=== PATIENT | female | born 1980 ===

== ENCOUNTER 2020-04-03 18:03 | Inpatient (IN) | payer MEDICAID ==
[~2020-04-03] VITALS: Ht 170.2 cm; Wt 63.6 kg
--- NOTE | 2020-04-03 18:20 | NUR ---
PT TO ROOM 2314. ACCOMPANIED BY EMS. PIVS TO KOFI ACS. ON THE VENT. SETTINGS PER RT. DICKENS PLACED. PROPOFOL INITIATED. PT IN KOFI SOFT WRIST RESTRAINTS. ON COVID/DROPLET PRECAUTIONS.
[2020-04-03 19:00] VITALS: BP 159/114
--- NOTE | 2020-04-03 19:00 | NUR ---
HEAD TO TOE ASSESSMENT COMPLETED. [facility] AT BEDSIDE. ORDERS RECIEVED TO ADMINISTER5 MG METOPROLOL FOR INCREASED HR. ADMISSION ORDERS RECIEVED. PT RESTLESS IN BED. TITRATING PROPOFOL NEEDED FOR SEDATION.
[2020-04-03] MEDS ORDERED: DILT-XR240 MG PO (19:23)
[2020-04-03] MEDS ORDERED: LISINOPRIL10 MG PO (19:23)
[2020-04-03] MEDS ORDERED: FUROSEMIDE20 MG PO (19:24)
[2020-04-03] MEDS ORDERED: TOPROL XL100 MG PO (19:24)
[2020-04-03] MEDS ORDERED: TAPAZOLE 10 MG10 MG PO (19:25)
[2020-04-03 20:00] VITALS: BP 149/105
--- NOTE | 2020-04-03 20:00 | NUR ---
RT AT BEDSIDE ADVANCING ETT. PT AWAKE ALERT/ RESTLESS. CALLED DR COLBY FOR UPDATE. ORDERS RECIEVED TO ADMINISTER FENTANYL AND PROPOFOL FOR SEDATION.
[2020-04-03 20:23] LABS: BASOPHILS 0.1 % (0-2); EOSINOPHILS 0.1 % (0-7); HEMATOCRIT 37.9 % (36.0-48.0); HEMOGLOBIN 11.6 g/dL (12-16); IMMATURE GRANULOCYTES 0.3 % (0-5); LYMPHOCYTES 8.1 % (15-50); MCH 26.8 pg (26.0-34.0); MCHC 30.6 g/dL (31.0-37.0); MCV 87.5 fL (80.0-100.0); MEAN PLATELET VOLUME 11.4 fL (7.4-10.4); MONOCYTES 4.7 % (2-11); NEUTROPHILS 86.7 % (40-80); PLATELET COUNT 321 10x3/uL (130-400); RBC 4.33 10x6/uL (4.00-5.40); RDW 15.7 % (11.5-14.5); WBC 15.6 10x3/uL (4.8-10.8)
[2020-04-03 20:29] LABS: CALC OSMOLALITY 296 mosm/kg (275-300); CARBON DIOXIDE 24.1 mmol/L (21.0-32.0); CHLORIDE - SERUM 113 mmol/L (98-107); CREATININE - SERUM 0.5 mg/dL (0.6-1.3); GLUCOSE 90 mg/dL (74-106); POTASSIUM - SERUM 4.7 mmol/L (3.5-5.1); SODIUM 149 mmol/L (136-145); UREA NITROGEN 14 mg/dL (7-18); eGFR NON AFRICAN AMERICAN > 90 mL/min (90-120)
[2020-04-03 20:31] LABS: APTT 31.6 SECONDS (22.8-39.4); INR 1.17 (0.85-1.17); PROTIME 14.8 SECONDS (11.6-15.0)
[2020-04-03 20:39] LABS: D-DIMER-QUANTITATIVE 3.31 ug/mLFEU (0.20-0.54)
[2020-04-03 20:48] LABS: ALBUMIN 2.8 g/dL (3.4-5.0); ALKALINE PHOSPHATASE 243 U/L (30-120); ALT (SGPT) 46 U/L (10-68); BILIRUBIN - TOTAL 0.46 mg/dL (0.2-1.3); FERRITIN 133 ng/mL (3-244); MAGNESIUM - SERUM 1.8 mg/dL (1.8-2.4); PHOSPHOROUS 8.5 mg/dL (2.5-4.9); PRO BNP 14687 pg/mL (0-125); PROTEIN - SERUM 6.2 g/dL (6.4-8.2)
[2020-04-03 20:56] LABS: T4 THYROXIN - FREE 10.48 ng/dL (0.76-1.46)
[2020-04-03 21:00] VITALS: BP 95/57
--- NOTE | 2020-04-03 21:00 | NUR ---
PT CONTINUES TO BE RESTLESS AND AGITATED ON VENT. TITRATING SEDATION NEEDED TO DECREASED AGITATION.
[2020-04-03 21:51] LABS: ERYTHROCYTE SEDIMENTATION RATE 6 mm/hr (0-20)
[2020-04-03 22:00] VITALS: BP 111/70
--- NOTE | 2020-04-03 22:00 | NUR ---
[facility] AT BEDSIDE. ORDERS RECIEVED TO HAVE RT ADVANCE ETT 2 CM AND THEN OBTAIN CXR FOR PLACEMENT AFTER CT SOFT TISSUE NECK COMPLETED.
[2020-04-03 23:00] VITALS: BP 108/59
--- NOTE | 2020-04-03 23:00 | NUR ---
REASSESSMENT COMPLETED. PT MORE RELAXED BUT STILL WAKES UP AGITATED AND RESTLESS WITH THE SLIGHTEST NOISE. CXR COMLETETED.
--- NOTE | 2020-04-03 23:30 | NUR ---
CALLED [facility] WITH RESULTS OF CXR. ORDERS RECIEVED TO HAVE RT ADVANCE ET TUBE AND THEN REPEAT CXR. RT ADVANCED ETT TO 25 AT THE LIP. CALLED DAVID FOR PLACEMENT.
[2020-04-04] VITALS (25 sets, daily range): BP systolic 99–150; BP diastolic 48–86; Ht 170.2 cm; Wt 63.6 kg
--- NOTE | 2020-04-04 01:45 | NUR ---
CALLED [facility] FOR CXR RESULTS. ORDERS RECIEVED TO KEEP PT SEDATED TO PREVENT THE ETT FROKM BEING DISLOGED. WILL CONTINUE TO MONITOR. VSS
--- NOTE | 2020-04-04 03:00 | NUR ---
REASSESSMENT COMPLETED. PT RELAXED AND CALM. VSS. WILL CONTINUE TO MONITOR.
[2020-04-04 04:17] LABS: BASOPHILS 0.1 % (0-2); EOSINOPHILS 0 % (0-7); HEMATOCRIT 32.9 % (36.0-48.0); HEMOGLOBIN 10.4 g/dL (12-16); IMMATURE GRANULOCYTES 0.2 % (0-5); LYMPHOCYTES 14.9 % (15-50); MCH 27.2 pg (26.0-34.0); MCHC 31.6 g/dL (31.0-37.0); MCV 86.1 fL (80.0-100.0); MEAN PLATELET VOLUME 10.4 fL (7.4-10.4); MONOCYTES 3.5 % (2-11); NEUTROPHILS 81.3 % (40-80); RBC 3.82 10x6/uL (4.00-5.40); RDW 15.5 % (11.5-14.5); WBC 19.3 10x3/uL (4.8-10.8)
[2020-04-04 04:21] LABS: PLATELET COUNT 203 10x3/uL (130-400)
[2020-04-04 04:37] LABS: ALBUMIN 2.2 g/dL (3.4-5.0); ALKALINE PHOSPHATASE 173 U/L (30-120); BILIRUBIN - TOTAL 0.54 mg/dL (0.2-1.3); CALC OSMOLALITY 297 mosm/kg (275-300); CALCIUM 7.7 mg/dL (8.5-10.1); CARBON DIOXIDE 28.4 mmol/L (21.0-32.0); CHLORIDE - SERUM 114 mmol/L (98-107); CREATININE - SERUM 0.4 mg/dL (0.6-1.3); GLUCOSE 86 mg/dL (74-106); MAGNESIUM - SERUM 1.6 mg/dL (1.8-2.4); PROTEIN - SERUM 5.4 g/dL (6.4-8.2); SODIUM 150 mmol/L (136-145); UREA NITROGEN 15 mg/dL (7-18); eGFR NON AFRICAN AMERICAN > 90 mL/min (90-120)
[2020-04-04 04:39] LABS: ALT (SGPT) 34 U/L (10-68); PHOSPHOROUS 4.9 mg/dL (2.5-4.9); POTASSIUM - SERUM 3.9 mmol/L (3.5-5.1)
--- NOTE | 2020-04-04 05:00 | NUR ---
OBTAINED AM LABS PER ORDER. PT RESTING WITH EYES CLOSED.
--- NOTE | 2020-04-04 07:00 | NUR ---
ASSESSMENT COMPLETE PER FLOWSHEET. PT VENTED ON 50 PERCENT. VSS. O2 SAT 99 PERCENT. WILL CONTINUE TO MONITOR.
--- NOTE | 2020-04-04 08:45 | NUR ---
DR HAQ HERE.
[2020-04-04 09:39] LABS: BACTERIA FEW /hpf (NEGATIVE); BILIRUBIN NEGATIVE (NEGATIVE); EPITHELIAL CELLS 0-5 /hpf (0-5); GLUCOSE NEGATIVE (NEGATIVE); KETONE SMALL mg/dL (NEGATIVE); NITRITE NEGATIVE (NEGATIVE); RED CELLS - URINE >50 /hpf (0-5); SPECIFIC GRAVITY 1.005 (1.005-1.020); UROBILINOGEN NORMAL (NORMAL)
--- NOTE | 2020-04-04 10:00 | NUR ---
DR COLBY HERE NEW ORDERS OBTAINED.
--- NOTE | 2020-04-04 11:00 | NUR ---
REASSESSMENT COMPLETE. NO CHANGES IN ASSESSMENT.
--- NOTE | 2020-04-04 15:00 | NUR ---
REASSESSMENT COMPLETE. NO CHANGES NOTED.
--- NOTE | 2020-04-04 18:00 | NUR ---
PT AWAKE ON VENT. FAMILY UPDATED WITH SANTOSH.
[2020-04-05] VITALS (24 sets, daily range): BP systolic 96–171; BP diastolic 43–85
[2020-04-05 07:37] LABS: BASOPHILS 0 % (0-2); EOSINOPHILS 0 % (0-7); HEMATOCRIT 35.4 % (36.0-48.0); HEMOGLOBIN 10.7 g/dL (12-16); IMMATURE GRANULOCYTES 0.1 % (0-5); LYMPHOCYTES 21.4 % (15-50); MCH 26.2 pg (26.0-34.0); MCHC 30.2 g/dL (31.0-37.0); MCV 86.6 fL (80.0-100.0); MEAN PLATELET VOLUME 11.2 fL (7.4-10.4); MONOCYTES 5.7 % (2-11); NEUTROPHILS 72.8 % (40-80); PLATELET COUNT 194 10x3/uL (130-400); RBC 4.09 10x6/uL (4.00-5.40); RDW 15.6 % (11.5-14.5)
[2020-04-05 07:45] LABS: WBC 8.2 10x3/uL (4.8-10.8)
[2020-04-05 07:52] LABS: ALBUMIN 2.3 g/dL (3.4-5.0); ALKALINE PHOSPHATASE 158 U/L (30-120); BILIRUBIN - TOTAL 0.63 mg/dL (0.2-1.3); CALCIUM 8.6 mg/dL (8.5-10.1); CARBON DIOXIDE 23.8 mmol/L (21.0-32.0); CHLORIDE - SERUM 109 mmol/L (98-107); CREATININE - SERUM 0.4 mg/dL (0.6-1.3); GLUCOSE 96 mg/dL (74-106); PHOSPHOROUS 4.5 mg/dL (2.5-4.9); POTASSIUM - SERUM 4.3 mmol/L (3.5-5.1); PROTEIN - SERUM 5.8 g/dL (6.4-8.2); SODIUM 145 mmol/L (136-145); eGFR NON AFRICAN AMERICAN > 90 mL/min (90-120)
[2020-04-05 07:53] LABS: ALT (SGPT) 25 U/L (10-68); CALC OSMOLALITY 291 mosm/kg (275-300); MAGNESIUM - SERUM 2.4 mg/dL (1.8-2.4); UREA NITROGEN 22 mg/dL (7-18)
--- NOTE | 2020-04-05 09:15 | NUR ---
EXTUBATED TO 2 LITER NC. WRIST RESTRAINTS DCD.
[2020-04-05 11:09] LABS: THYROGLOBULIN ANTIBODY <1.0 IU/mL (0.0-0.9); THYROID PEROXIDASE ABS 491 IU/mL (0-34)
--- NOTE | 2020-04-05 13:43 | NUR ---
Nutrition follow-up: Pt extubated today; NPO until swallow eval Labs reviewed Wt: 140# BIPAP in use. RDN following.
[2020-04-06] VITALS (14 sets, daily range): BP systolic 116–141; BP diastolic 51–82
[2020-04-06 06:22] LABS: BASOPHILS 0 % (0-2); EOSINOPHILS 0 % (0-7); HEMATOCRIT 35.8 % (36.0-48.0); HEMOGLOBIN 11.2 g/dL (12-16); IMMATURE GRANULOCYTES 0.2 % (0-5); LYMPHOCYTES 17.1 % (15-50); MCH 26.5 pg (26.0-34.0); MCHC 31.3 g/dL (31.0-37.0); MCV 84.8 fL (80.0-100.0); MEAN PLATELET VOLUME 11.2 fL (7.4-10.4); MONOCYTES 1.7 % (2-11); PLATELET COUNT 190 10x3/uL (130-400); RBC 4.22 10x6/uL (4.00-5.40); RDW 15.2 % (11.5-14.5); WBC 6.5 10x3/uL (4.8-10.8)
[2020-04-06 06:43] LABS: ALBUMIN 2.6 g/dL (3.4-5.0); ALKALINE PHOSPHATASE 153 U/L (30-120); ALT (SGPT) 28 U/L (10-68); BILIRUBIN - TOTAL 0.61 mg/dL (0.2-1.3); CALC OSMOLALITY 287 mosm/kg (275-300); CALCIUM 8.7 mg/dL (8.5-10.1); CARBON DIOXIDE 27.6 mmol/L (21.0-32.0); CHLORIDE - SERUM 108 mmol/L (98-107); CREATININE - SERUM 0.4 mg/dL (0.6-1.3); MAGNESIUM - SERUM 2.1 mg/dL (1.8-2.4); POTASSIUM - SERUM 4.3 mmol/L (3.5-5.1); PROTEIN - SERUM 6.3 g/dL (6.4-8.2); SODIUM 142 mmol/L (136-145); UREA NITROGEN 18 mg/dL (7-18); eGFR NON AFRICAN AMERICAN > 90 mL/min (90-120)
[2020-04-06 06:44] LABS: GLUCOSE 147 mg/dL (74-106); PHOSPHOROUS 2.6 mg/dL (2.5-4.9)
--- NOTE | 2020-04-06 07:42 | NUR ---
PT UP IN BED AWAKE AT THIS TIME. VSS. NO ACUTE DISTRESS NOTED. PT ALERT AND ORIENTED. CALL LIGHT AND PERSONAL ITEMS IN REACH. INDEPENDENT IN BED. WILL CONTINUE PLAN OF CARE.
--- NOTE | 2020-04-06 09:40 | NUR ---
NC REMOVED PER DR MACHADO, PT NOW ON ROOM AIR, TOLERATING WELL WITH OXYGEN SATURATION 94%.
--- NOTE | 2020-04-06 10:41 | NUR ---
CONTINENT BOWEL MOVEMENT NOTED AT THIS TIME, LARGE SOFT BROWN. PT PROVIDED OWN FRANKI CARE. VSS. PARTIAL LINEN CHANGE. WILL CONTINUE PLAN OF CARE.
--- NOTE | 2020-04-06 10:41 | NUR ---
PER SERA WALKER TO TRANSFER TO FLOOR ON TELEMETRY.
--- NOTE | 2020-04-06 12:47 | NUR ---
PER DR COLBY, OKAY TO TRANSFER TO FLOOR.
--- NOTE | 2020-04-06 14:16 | NUR ---
PER DR COLBY, LELE DICKENS.
--- NOTE | 2020-04-06 14:21 | NUR ---
DICKENS DCD AT THIS TIME PER DR COLBY ORDERS. CATHETER TIP INTACT. PT NOW SITTING ON BEDSIDE TOILET. VSS. NO ACUTE DISTRESS NOTED. WILL CONTINUE PLAN OF CARE.
--- NOTE | 2020-04-06 15:49 | NUR ---
AWAKE SITTING UP IN BED AT THIS TIME. DENIES ANY NEEDS. VSS. CALL LIGHT AND PERSONAL ITEMS IN REACH. WILL CONTINUE PLAN OF CARE.
--- NOTE | 2020-04-06 17:43 | NUR ---
CONTINENT VOID NOTED AT THIS TIME VIA BEDSIDE TOILET. PT PROVIDED OWN FRANKI CARE. VSS. NO ACUTE DISTRESS NOTED. WILL CONTINUE PLAN OF CARE.
--- NOTE | 2020-04-06 17:44 | NUR ---
NOTED PT TO TRANSFER TO ROOM 2126. ATTEMPTED TO CALL REPORT, NO ANSWER NOTED WHEN CALLED UNIT. WILL CONTINUE TO ATTEMPT TO CALL REPORT.
--- NOTE | 2020-04-06 18:06 | NUR ---
REPORT CALLED FOR PT TO TRANSFER TO ROOM 2126, WILL TRANSFER PT SHORTLY.
--- NOTE | 2020-04-06 18:32 | NUR ---
PT TRANSFERRED TO 2126 AT THIS TIME VIA WHEELCHAIR. VSS. NO ACUTE DISTRESS NOTED. NO FURTHER ACTIONS.
--- NOTE | 2020-04-06 20:34 | NUR ---
PATIENT LAYING IN BED ON HER RIGHT SIDE EYES CLOSED BREATHING EVEN AND UNLABORED. NO DISTRESS NOTED AT THIS TIME. PATIENT EASILY AROUSED, STATES SHE HAS NO NEEDS SHE IS JUST TIRED. PATIENT HAS A RIGHT AC PIV THAT IS SALINE LOCKED AT THIS TIME. CALL LIGHT WITHIN REACH AND BED IN LOWEST LOCKED POSITION
[2020-04-07] VITALS: BP 135/68
[2020-04-07 04:00] VITALS: BP 139/67
[2020-04-07 05:06] LABS: BASOPHILS 0 % (0-2); EOSINOPHILS 0 % (0-7); HEMATOCRIT 32.6 % (36.0-48.0); HEMOGLOBIN 10.2 g/dL (12-16); LYMPHOCYTES 30.6 % (15-50); MCH 26.1 pg (26.0-34.0); MCHC 31.3 g/dL (31.0-37.0); MCV 83.4 fL (80.0-100.0); MEAN PLATELET VOLUME 10.8 fL (7.4-10.4); MONOCYTES 2.7 % (2-11); NEUTROPHILS 66.7 % (40-80); PLATELET COUNT 156 10x3/uL (130-400); RBC 3.91 10x6/uL (4.00-5.40); RDW 14.6 % (11.5-14.5); WBC 5.2 10x3/uL (4.8-10.8)
[2020-04-07 05:27] LABS: ALBUMIN 2.4 g/dL (3.4-5.0); ALKALINE PHOSPHATASE 117 U/L (30-120); ALT (SGPT) 26 U/L (10-68); BILIRUBIN - TOTAL 0.53 mg/dL (0.2-1.3); CARBON DIOXIDE 24.5 mmol/L (21.0-32.0); CHLORIDE - SERUM 108 mmol/L (98-107); CREATININE - SERUM 0.4 mg/dL (0.6-1.3); GLUCOSE 169 mg/dL (74-106); MAGNESIUM - SERUM 1.8 mg/dL (1.8-2.4); PHOSPHOROUS 2.7 mg/dL (2.5-4.9); PROTEIN - SERUM 5.6 g/dL (6.4-8.2); SODIUM 142 mmol/L (136-145); eGFR NON AFRICAN AMERICAN > 90 mL/min (90-120)
[2020-04-07 05:30] LABS: CALC OSMOLALITY 286 mosm/kg (275-300); POTASSIUM - SERUM 3.4 mmol/L (3.5-5.1); UREA NITROGEN 13 mg/dL (7-18)
[2020-04-07 09:25] VITALS: BP 135/88; BP 146/68
[2020-04-07 12:00] VITALS: BP 140/92
--- NOTE | 2020-04-07 13:01 | NUR ---
Nutrition Follow-up: Eating well. Observed majority of breakfast eaten this AM. Denies N/V/C/D, chewing/swallowing difficulty. ST following. Diet: Regular, Mech Soft (ground meat/gravy) and Thin Liquids Wt: 140# (04/04) Last BM: 04/07 Labs noted: K+ 3.4, Ca 8.0, Alb 2.4 Meds noted: Solumedrol, Protonix, electrolyte protocol -Monitor wt; noted daily wts ordered. -RD following.
[2020-04-07 13:11] LABS: HCG URINE NEGATIVE (NEGATIVE)
[2020-04-07 16:30] VITALS: BP 134/60
--- NOTE | 2020-04-07 19:31 | NUR ---
RECIEVED UP IN BED WITH EYES OPEN AND TV ON. ALERT AND ORIENTED X4. UP AD [place] TO B/R. NOT WEARING O2 AT THIS TIME. IV TO LT AC SL. DENIES ANY NEEDS AT THIS TIME.
[2020-04-07 20:00] VITALS: BP 140/68
[2020-04-08 00:01] VITALS: BP 133/74
[2020-04-08 04:00] VITALS: BP 145/66
[2020-04-08 06:11] LABS: HEMATOCRIT 35.7 % (36.0-48.0); HEMOGLOBIN 11.5 g/dL (12-16); LYMPHOCYTES 62.2 % (15-50); MCH 26.6 pg (26.0-34.0); MCHC 32.2 g/dL (31.0-37.0); MCV 82.6 fL (80.0-100.0); MEAN PLATELET VOLUME 10.8 fL (7.4-10.4); NEUTROPHILS 34.6 % (40-80); PLATELET COUNT 146 10x3/uL (130-400); RBC 4.32 10x6/uL (4.00-5.40); RDW 14.6 % (11.5-14.5)
[2020-04-08 06:15] LABS: WBC 9.4 10x3/uL (4.8-10.8)
[2020-04-08 06:18] LABS: ALBUMIN 2.6 g/dL (3.4-5.0); ALKALINE PHOSPHATASE 121 U/L (30-120); ALT (SGPT) 31 U/L (10-68); BILIRUBIN - TOTAL 0.48 mg/dL (0.2-1.3); CHLORIDE - SERUM 106 mmol/L (98-107); CREATININE - SERUM 0.4 mg/dL (0.6-1.3); MAGNESIUM - SERUM 1.9 mg/dL (1.8-2.4); PROTEIN - SERUM 5.7 g/dL (6.4-8.2); SODIUM 142 mmol/L (136-145); UREA NITROGEN 10 mg/dL (7-18); eGFR NON AFRICAN AMERICAN > 90 mL/min (90-120)
[2020-04-08 06:33] LABS: CALC OSMOLALITY 282 mosm/kg (275-300); GLUCOSE 111 mg/dL (74-106); PHOSPHOROUS 3.5 mg/dL (2.5-4.9)
[2020-04-08 06:34] LABS: POTASSIUM - SERUM 2.8 mmol/L (3.5-5.1)
--- NOTE | 2020-04-08 07:30 | NUR ---
PT ASKING ABOUT GOING HOME, DRESSED AND MOTHER AT FRONT DOOR. INSTRUCTED THAT NO ORDER FOR DISCHARGE AT PRESENT SO WILL NEED TO WAIT SO TO NOT BE LEAVING AMA. IV IS OUT AT PRESENT.
[2020-04-08 08:03] VITALS: BP 138/79
[2020-04-08] MEDS ORDERED: PREDNISONE20 MG PO (09:43)
[2020-04-08] MEDS ORDERED: LEVAQUIN750 MG PO (09:46)
--- NOTE | 2020-04-08 10:48 | NUR ---
DISCHARGE INSTRUCTIONS REVIEWED AND SIGNED. SCRIPTS ESCRIBED TO [facility] BUT [facility] NOT OPEN [facility] INSTRUCTED TO CALL PCP AND MAKE APPT FRIDAY.
--- NOTE | 2020-04-08 10:56 | NUR ---
PT REPORTS HER PHARMACY, [facility], IS CLOSED. REQUESTED RX'S CALLED TO [facility] IN [place]. RX FOR LEVAQUIN AND PREDNISONE TAPER ISSUED TO [facility] IN [place], SPOKE WITH PHARMACIST, GRACE.
== END 2020-04-08 10:50 | disposition home or self-care (01) | DRG 208 ==
LOC: D.ICU 18:03 → D.M2 04-06 18:21
PROVIDERS: Internal Medicine Pulmonary Disease; ADMIT Internal Medicine Nephrology; ATTEND Internal Medicine Nephrology
PROC: 5A1945Z Respiratory Ventilation, 24-96 Consecutive Hours (ICD-10-PCS; principal; 2020-04-03)
DX: J96.01 Acute respiratory failure with hypoxia (principal); E05.01 Thyrotoxicosis with diffuse goiter with thyrotoxic crisis or storm; I50.23 Acute on chronic systolic (congestive) heart failure; E87.0 Hyperosmolality and hypernatremia; I50.83 High output heart failure; I11.0 Hypertensive heart disease with heart failure; R00.0 Tachycardia, unspecified